=== PATIENT | male | born 1935 | race Caucasian/White ===

== ENCOUNTER → 2017-03-07 | Outpatient (CLI) | payer MEDICARE, OTHER ==
[~2017-03-07] VITALS: Ht 180.3 cm; Wt 87.7 kg
[~2017-03-07] MED LIST: "\\\"WATER PILL\\\""; ALDACTONE 25MG25 M1 PO; AMOXICILLIN 50500 MG PO; ASPIR-LOW81 MG PO; ASPIRIN 81M81 MG/TA2 PO; ASPIRIN E.C. 8181 MG PO; BETAPACE 80MG80 MG PO; BETAPACE AF80 MG/TA1 PO; BIOTIN2500 MCG PO; BLOOD PRESSURE PILL; CAL-CITRATE PLU1 TAB PO; CALCIUM CITRAT200 MG PO; CARDIZEM SR 60M60 MG PO; CENTRUM SILVER1 TA1 PO; CORDARONE200 MG/TAB PO; D3PLUS1 CAP PO; DOXYCYCLINE 10100 MG PO; ELIQUIS 5MG PO; EXFORGE 10 MG-31 TAB PO; EXFORGE 5 MG-321 TAB PO; HCTZ 25MG TAB25 MG PO; IMDUR 30MG30 MG/TAB PO; K-TAB20 PO; LASIX 20MG TABL20 MG PO; LASIX 40MG TABL40 MG PO; LASIX 80MG TABL80 MG PO; LIPITOR20 MG PO; LOPRESSOR 225 MG/TAB PO; LOPRESSOR 550 MG/TAB PO; MIRALAX PA17 GM/Dose PO; MVI; NITROSTAT0.4 MG/TAB SL; NORVASC 5MG5 MG/TAB PO; PACERONE200 MG PO; PREDNISONE10 MG PO; PRILOSEC 20MG20 MG PO; PRILOTC PO; PROCTOFOAM-HC F10 G1 RC; SIMVASTATIN20 MG PO; ST. JOSEPH81 M2 PO; TOPROL XL 25MG25 MG PO; UNKNOWN ANTIBIOTIC; VASOTEC 2.2.5 MG/TAB PO; VITAMIN D3400 IU PO; ZOCOR
[2017-03-07 14:50] VITALS: BP 123/96; PULSE 73
[2017-03-07 16:10] VITALS: BP 127/98; PULSE 75
[2017-03-07 17:31] LABS: PLEURAL FLUID - PMN 6.1 % (0-25); PLEURAL FLUID WBC 880 /mm3
[2017-03-07 17:32] LABS: GLUCOSE,PLEURAL FLUID 91 mg/dL
[2017-03-12 11:16] LABS: PLEURAL FLUID RIGHT SIDE; PLEURAL FLUID APPEARANCE CLOUDY; PLEURAL FLUID COLOR AMBER
== END ==
LOC: COL.RAD 03-06 12:45
PROVIDERS: Internal Medicine
DX: J90 Pleural effusion, not elsewhere classified (principal); I51.7 Cardiomegaly; J98.4 Other disorders of lung; J16.8 Pneumonia due to other specified infectious organisms; Z95.0 Presence of cardiac pacemaker; Z95.1 Presence of aortocoronary bypass graft; Z90.49 Acquired absence of other specified parts of digestive tract

== ENCOUNTER → 2017-03-12 | Outpatient (CLI) | payer MEDICARE, OTHER ==
[~2017-03-12] VITALS: Ht 180.3 cm; Wt 87.1 kg
[2017-03-12 13:21] VITALS: BP 119/94; PULSE 85
[2017-03-12 14:27] VITALS: BP 118/93; PULSE 95
[2017-03-12 15:23] LABS: PLEURAL FLUID - PMN 2.5 % (0-25); PLEURAL FLUID WBC 690 /mm3
[2017-03-12 15:27] LABS: PLEURAL FLUID LEFT SIDE; PLEURAL FLUID APPEARANCE HAZY; PLEURAL FLUID COLOR YELLOW
== END ==
LOC: COL.RAD 13:01
PROVIDERS: Internal Medicine
DX: J90 Pleural effusion, not elsewhere classified (principal); I10 Essential (primary) hypertension; J98.11 Atelectasis; Z95.0 Presence of cardiac pacemaker
CPT/HCPCS: 19804

== ENCOUNTER → 2017-04-30 | Outpatient (CLI) | payer MEDICARE, OTHER ==
[~2017-04-30] VITALS: Ht 180.3 cm; Wt 87.1 kg
[~2017-04-30] MED LIST changes: -CAL-CITRATE PLU1 TAB PO; +CALCIUM 600/VIT1 CAP PO; +CENTRUM SILVER1 CTB PO
[2017-04-30 12:25] VITALS: BP 124/99; PULSE 80
[2017-04-30 13:40] VITALS: BP 117/95; PULSE 70
[2017-04-30 13:59] LABS: PLEURAL FLUID - PMN 3.9 % (0-25); PLEURAL FLUID WBC 1082 /mm3
[2017-04-30 14:00] LABS: PLEURAL FLUID RIGHT SIDE
[2017-04-30 14:01] LABS: PLEURAL FLUID APPEARANCE HAZY; PLEURAL FLUID COLOR PINK
== END ==
LOC: COL.RAD 12:00
PROVIDERS: Internal Medicine
DX: J90 Pleural effusion, not elsewhere classified (principal); J98.4 Other disorders of lung; I51.7 Cardiomegaly
CPT/HCPCS: 19804

== ENCOUNTER → 2017-09-25 | Outpatient (CLI) | payer MEDICARE, OTHER | LOC: COL.RAD 07:14 | DX: M48.07 Spinal stenosis, lumbosacral region (principal); M51.36 Other intervertebral disc degeneration, lumbar region; I71.9 Aortic aneurysm of unspecified site, without rupture ==

== ENCOUNTER → 2017-12-29 | Outpatient (CLI) | payer MEDICARE, OTHER ==
[~2017-12-29] VITALS: Ht 180.3 cm; Wt 82.3 kg
[~2017-12-29] MED LIST changes: +DIOVAN320 MG PO
[2017-12-29 12:20] VITALS: BP 115/89; PULSE 80
[2017-12-29 13:51] VITALS: BP 119/79; PULSE 77
== END ==
LOC: COL.RAD 11:35
DX: M48.061 Spinal stenosis, lumbar region without neurogenic claudication (principal); M54.17 Radiculopathy, lumbosacral region
CPT/HCPCS: J3301

== ENCOUNTER → 2018-03-23 | Outpatient (CLI) | payer MEDICARE, OTHER ==
[~2018-03-23] VITALS: Ht 180.3 cm; Wt 83.6 kg
[~2018-03-23] MED LIST changes: +CARDIZEM CD 24240 MG PO
[2018-03-23 14:47] VITALS: BP 93/79; PULSE 97
[2018-03-23 16:22] VITALS: BP 119/83; PULSE 86
[2018-03-23 16:49] LABS: PLEURAL FLUID RBC 188000 /mm3 (0-0); PLEURAL FLUID WBC 1613 /mm3
[2018-03-23 16:51] LABS: PLEURAL FLUID APPEARANCE HAZY; PLEURAL FLUID COLOR RED
[2018-03-23 16:54] LABS: GLUCOSE,PLEURAL FLUID 87 mg/dL; TOTAL PROTEIN,PLEURAL FLUID 4.5 gm/dL
[2018-03-23 18:37] LABS: CHOLESTEROL-BODY FLUID 62 mg/dL
[2018-03-24 03:33] LABS: PROCALCITONIN 0.03 ng/mL (0.00-0.09)
== END ==
LOC: COL.RAD 14:10
PROVIDERS: Internal Medicine
DX: J90 Pleural effusion, not elsewhere classified (principal); Z95.0 Presence of cardiac pacemaker; Z95.2 Presence of prosthetic heart valve; Z98.890 Other specified postprocedural states

== ENCOUNTER → 2018-08-28 | Outpatient (CLI) | payer MEDICARE, OTHER | LOC: COL.RAD 12:06 | DX: G31.9 Degenerative disease of nervous system, unspecified (principal); I67.82 Cerebral ischemia ==

== ENCOUNTER 2018-11-30 08:15 | Outpatient (RCR) | payer MEDICARE, OTHER | END 2018-12-10 13:38 | disposition home or self-care (01) | LOC: WSST 08:15 | DX: R41.89 Other symptoms and signs involving cognitive functions and awareness (principal) ==

== ENCOUNTER 2022-05-07 07:02 | Day surgery (SDC) | payer MEDICARE, OTHER ==
[~2022-05-07] VITALS: Ht 172.7 cm; Wt 78.7 kg
[2022-05-07] MEDS ORDERED: NITROSTAT0.4 MG/TAB SL (07:52)
[2022-05-07] MEDS ORDERED: RANEXA 500MG T500 MG PO (07:52)
[2022-05-07] MEDS ORDERED: AMOXICILLIN 50500 MG (07:53)
[2022-05-07 08:11] VITALS: BP 158/101; PULSE 66; TEMP 97.4
[2022-05-07 09:25] VITALS: BP 135/97; PULSE 66; TEMP 97.3
--- NOTE | 2022-05-07 09:25 | NUR ---
PATIENT RETURNS TO ROOM 2 VIA CART. ASSIST TO CHAIR X 2. VITAL SIGNS WNL. SON AT BEDSIDE. PATIENT REQUESTS A MUFFIN AND SOME CRACKERS, WATER AND COFFEE TO DRINK. WAITING FOR DOCTOR TO SPEAK WITH PATIENT. WILL CONTINUE TO MONITOR.
[2022-05-07 09:40] VITALS: BP 145/81; PULSE 61
--- NOTE | 2022-05-07 09:40 | NUR ---
PATIENT IS DOING WELL. TOLERATED EATING AND DRINKING. DENIES ANY PAIN OR NAUSEA. VITAL SIGNS WNL. DOCTOR AT BEDSIDE. IV DISCONTINUED. WILL CONTINUE TO MONITOR.
[2022-05-07 09:55] VITALS: BP 141/103; PULSE 60
--- NOTE | 2022-05-07 09:55 | NUR ---
PATIENT IS READY FOR DISCHARGE. INSTRUCTIONS REVIEWED. LAST SET OF VITALS WNL. FRIEND AT BEDSIDE, HE WILL GO GET THE CAR AND PULL AROUND FRONT. WILL D/C ONCE PATIENT IS DRESSED.
== END 2022-05-07 10:12 | disposition home or self-care (01) ==
LOC: SDCO 07:02
DX: Z12.11 Encounter for screening for malignant neoplasm of colon (principal); D12.3 Benign neoplasm of transverse colon; D12.4 Benign neoplasm of descending colon; K64.0 First degree hemorrhoids
CPT/HCPCS: J2704; J7120